=== PATIENT | female | born 1970 | race Caucasian/White ===

== ENCOUNTER → 2017-03-31 13:09 | Outpatient (CLI) | payer OTHER, SELFPAY ==
[2017-03-31 16:53] LABS: BUN 9 mg/dL (7-18); Creatinine, Serum 0.78 mg/dL (0.55-1.02); Glucose 84 mg/dL (74-106)
[2017-03-31 16:54] LABS: ALB/GLOB Ratio 0.9 RATIO (0.9-2.4); AST(SGOT) 15 U/L (15-37); Alanine Aminotransfer ALT/SGPT 24 U/L (13-56); Albumin, Serum 3.8 g/dL (3.2-5.0); Alkaline Phosphatase 72 U/L (45-117); Anion Gap 7 (5-15); BUN/Creat Ratio 11.5 RATIO (10-20); Calcium,Total 9.2 mg/dL (8.5-10.1); Chloride 105 mmol/L (98-107); EST Glomerular Filtration Rate 84 mL/min (>60); Est Glom Filt Rate - Afr Amer 101 mL/min (>60); Globulin 4.3 g/dL (2.2-4.2); Potassium 3.8 mmol/L (3.5-5.1); Protein, Total 8.1 g/dL (6.4-8.2); Sodium Level 138 mmol/L (136-145)
[2017-03-31 18:34] LABS: Absolute Lymphocyte Count 2.76 X10^3/ul (0.83-4.51); Absolute Neutrophil Count 4.5 X10^3/uL (2.0-7.7); Basophil# 0.04 X10^3/uL; Basophil% 0.5 % (0-1); Eosinophil# 0.13 X10^3/uL; Eosinophils% 1.6 % (0-5); Hematocrit 41.7 % (37-47); Hemoglobin 13.7 g/dl (12.0-15.0); Lymphocyte # 2.76 X10^3/ul (4.0); Lymphocyte % 33.7 % (19-41); Mean Corp Hgb Conc 32.9 g/gl (32-36); Mean Corpuscular Hgb 31.2 pg (27.0-32.0); Mean Platelet Vol. 9.9 fl (6.2-12.0); Monocyte# 0.76 X10^3/uL; Monocyte% 9.3 % (0-10); Neutrophil # 4.49 X10^3/uL (2.7-7.7); Neutrophil % 54.8 % (47-70); Platelet Count 444 K/mm3 (150-450); RBC Distribution Width CV 13.6 % (11.6-14.6); RBC Distribution Width SD 44.5 fl (35.1-43.9); Red Blood Count 4.39 M/mm3 (4.2-5.4); White Blood Count 8.2 K/mm3 (4.4-11.0)
[2017-03-31 18:54] LABS: POSITIVE COUNT NO; POSITIVE DIFFERENTIAL NO; POSITIVE MORPHOLOGY NO
== END ==
PROVIDERS: Family Provider Nurse Practitioner; PCP Nurse Practitioner; Visit Provider Internal Medicine Rheumatology
DX: L40.59 Other psoriatic arthropathy (principal); L40.8 Other psoriasis; M35.1 Other overlap syndromes; Z79.899 Other long term (current) drug therapy
CPT/HCPCS: 36415; 80053; 85025

== ENCOUNTER → 2017-06-19 10:05 | Outpatient (CLI) | payer OTHER, SELFPAY ==
[2017-06-19 12:07] LABS: White Blood Count 8.5 K/mm3 (4.4-11.0)
[2017-06-19 12:08] LABS: Absolute Lymphocyte Count 2.33 X10^3/ul (0.83-4.51); Absolute Neutrophil Count 5.2 X10^3/uL (2.0-7.7); Basophil# 0.04 X10^3/uL; Basophil% 0.5 % (0-1); Eosinophil# 0.09 X10^3/uL; Eosinophils% 1.1 % (0-5); Hematocrit 42.9 % (37-47); Hemoglobin 14.4 g/dl (12.0-15.0); Lymphocyte # 2.33 X10^3/ul (4.0); Lymphocyte % 27.5 % (19-41); Mean Corp Hgb Conc 33.6 g/gl (32-36); Mean Corpuscular Hgb 31.5 pg (27.0-32.0); Mean Corpuscular Volume 93.9 fL (81-99); Mean Platelet Vol. 9.6 fl (6.2-12.0); Monocyte# 0.84 X10^3/uL; Monocyte% 9.9 % (0-10); Neutrophil # 5.15 X10^3/uL (2.7-7.7); Neutrophil % 60.9 % (47-70); POSITIVE COUNT NO; POSITIVE DIFFERENTIAL NO; POSITIVE MORPHOLOGY NO; Platelet Count 457 K/mm3 (150-450); RBC Distribution Width CV 13.4 % (11.6-14.6); RBC Distribution Width SD 44.6 fl (35.1-43.9); Red Blood Count 4.57 M/mm3 (4.2-5.4)
[2017-06-19 12:31] LABS: ALB/GLOB Ratio 0.8 RATIO (0.9-2.4); AST(SGOT) 17 U/L (15-37); Alanine Aminotransfer ALT/SGPT 25 U/L (13-56); Albumin, Serum 3.7 g/dL (3.2-5.0); Alkaline Phosphatase 79 U/L (45-117); Anion Gap 9 (5-15); BUN 10 mg/dL (7-18); Calcium,Total 9.3 mg/dL (8.5-10.1); Chloride 105 mmol/L (98-107); Creatinine, Serum 0.83 mg/dL (0.55-1.02); EST Glomerular Filtration Rate 78 mL/min (>60); Est Glom Filt Rate - Afr Amer 94 mL/min (>60); Globulin 4.5 g/dL (2.2-4.2); Glucose 92 mg/dL (74-106); Protein, Total 8.2 g/dL (6.4-8.2); Sodium Level 137 mmol/L (136-145); Uric Acid 3.4 mg/dL (2.6-6.0)
== END ==
PROVIDERS: Family Provider Nurse Practitioner; PCP Nurse Practitioner; Visit Provider Internal Medicine Rheumatology
DX: L40.59 Other psoriatic arthropathy (principal); M79.7 Fibromyalgia; L40.8 Other psoriasis; M35.1 Other overlap syndromes; Z79.899 Other long term (current) drug therapy
CPT/HCPCS: 36415; 80053; 84550; 85025

== ENCOUNTER → 2017-06-23 11:48 | Outpatient (CLI) | payer OTHER, SELFPAY ==
--- NOTE | 2017-06-23 11:52 | RAD_ITS ---
STUDY: X-RAY - RIGHT KNEE REASON FOR EXAM: Psoriatic arthropathy. TECHNIQUE: 4 view(s) of the knee. COMPARISON: None. FINDINGS: Normal visualized distal femur. Normal visualized proximal tibia and fibula. Normal proximal tibiofibular articulation. There is mild joint space narrowing of the medial femorotibial compartment and a small subchondral cyst of the medial femoral condyle. Normal lateral femorotibial compartment. There are minimal marginal osteophytes of the patella without joint space narrowing of the patellofemoral articulation. The soft tissue structures are unremarkable. RAD/Knee 4 or More Views IMPRESSION: Mild degenerative arthrosis of the medial femorotibial compartment. Electronically Signed: Alan Escobedo MD at 12:24 EDT Tel , Service support ,
--- NOTE | 2017-06-23 11:52 | RAD_ITS ---
STUDY: X-RAY - LEFT KNEE REASON FOR EXAM: Psoriatic arthropathy. TECHNIQUE: 4 view(s) of the knee. COMPARISON: None. FINDINGS: Normal visualized distal femur. Normal visualized proximal tibia and fibula. Normal proximal tibiofibular articulation. There is mild joint space narrowing of the medial femorotibial compartment. Normal lateral femorotibial compartment. Normal patellofemoral articulation. The soft tissue structures are unremarkable. RAD/Knee 4 or More Views IMPRESSION: Mild degenerative arthrosis of the medial femorotibial compartment. Electronically Signed: Alan Escobedo MD at 12:24 EDT Tel , Service support ,
== END ==
PROVIDERS: Family Provider Nurse Practitioner; PCP Nurse Practitioner; Visit Provider Internal Medicine Rheumatology
DX: L40.59 Other psoriatic arthropathy (principal); M79.7 Fibromyalgia; L40.8 Other psoriasis; M35.1 Other overlap syndromes; Z79.899 Other long term (current) drug therapy
CPT/HCPCS: 73564

== ENCOUNTER → 2017-07-23 11:36 | Outpatient (CLI) | payer OTHER, SELFPAY ==
--- NOTE | 2017-07-23 11:36 | RAD_ITS ---
STUDY: X-RAY CHEST REASON FOR EXAM: Female, 47 years old. Long-term drug therapy. Psoriatic arthropathy. TECHNIQUE: PA and lateral views of the chest. COMPARISON: May 01, 2016. FINDINGS: The lungs are clear and expanded. There is no demonstrated pleural abnormality. Normal size heart. Normal mediastinum and ahsan. Normal visualized pulmonary arteries. Normal visualized aortic arch and descending thoracic aorta. Normal visualized thoracic spine. Normal visualized ribs, clavicles, and shoulders. There is no demonstrated abnormality of the visualized soft tissue structures of the upper abdomen. RAD/Chest PA and Lateral IMPRESSION: Normal x-ray examination of the chest. There is no interval change. Electronically Signed: Preston Cook DO at 15:40 EDT Tel [phone], Service support ,
--- NOTE | 2017-07-23 11:36 | DT_ITS ---
This patient was seen during an EMR downtime July 21, 2017 - July 28, 2017. This patient may have a combination of paper and electronic documentation or all paper documentation. All documentation is viewable within the e-chart portion of [facility] for each patient visit.
[2017-08-01 16:10] LABS: QNTFERON TB Ag Minus Nil Value < 0 IU/mL (.); QNTFERON TB Ag Value 0.06 IU/mL (.); QNTFERON TB Mitogen Value > 10.00 IU/mL (.); QNTFERON TB Nil Value 0.08 IU/mL (.)
[2017-08-01 18:28] LABS: QNTIFERON TB Gold Negative (Negative)
== END ==
PROVIDERS: Family Provider Nurse Practitioner; PCP Nurse Practitioner; Visit Provider Internal Medicine Rheumatology
DX: L40.59 Other psoriatic arthropathy (principal); Z79.899 Other long term (current) drug therapy; M79.7 Fibromyalgia; L40.8 Other psoriasis; M35.1 Other overlap syndromes
CPT/HCPCS: 71046; 86480

== ENCOUNTER → 2017-10-01 10:18 | Outpatient (CLI) | payer OTHER, SELFPAY ==
[2017-10-01 12:40] LABS: Absolute Lymphocyte Count 2.76 X10^3/ul (0.83-4.51); Absolute Neutrophil Count 4.1 X10^3/uL (2.0-7.7); Basophil# 0.04 X10^3/uL; Basophil% 0.5 % (0-1); Eosinophil# 0.18 X10^3/uL; Eosinophils% 2.3 % (0-5); Hematocrit 39.7 % (37-47); Hemoglobin 12.7 g/dl (12.0-15.0); Lymphocyte # 2.76 X10^3/ul (4.0); Lymphocyte % 35.4 % (19-41); Mean Corpuscular Hgb 30.1 pg (27.0-32.0); Mean Corpuscular Volume 94.1 fL (81-99); Mean Platelet Vol. 9.5 fl (6.2-12.0); Monocyte# 0.71 X10^3/uL; Monocyte% 9.1 % (0-10); Neutrophil % 52.6 % (47-70); Platelet Count 419 K/mm3 (150-450); RBC Distribution Width SD 44.3 fl (35.1-43.9); Red Blood Count 4.22 M/mm3 (4.2-5.4); White Blood Count 7.8 K/mm3 (4.4-11.0)
[2017-10-01 12:44] LABS: POSITIVE COUNT NO; POSITIVE DIFFERENTIAL NO; POSITIVE MORPHOLOGY NO
[2017-10-01 13:05] LABS: ALB/GLOB Ratio 0.8 RATIO (0.9-2.4); AST(SGOT) 14 U/L (15-37); Alanine Aminotransfer ALT/SGPT 21 U/L (13-56); Albumin, Serum 3.3 g/dL (3.2-5.0); Alkaline Phosphatase 75 U/L (45-117); Anion Gap 6 (5-15); BUN 10 mg/dL (7-18); BUN/Creat Ratio 13.1 RATIO (10-20); Calcium,Total 9.3 mg/dL (8.5-10.1); Chloride 108 mmol/L (98-107); Creatinine, Serum 0.76 mg/dL (0.55-1.02); EST Glomerular Filtration Rate 86 mL/min (>60); Est Glom Filt Rate - Afr Amer 105 mL/min (>60); Globulin 4.1 g/dL (2.2-4.2); Glucose 86 mg/dL (74-106); Potassium 3.7 mmol/L (3.5-5.1); Protein, Total 7.4 g/dL (6.4-8.2); Sodium Level 141 mmol/L (136-145)
== END ==
PROVIDERS: Family Provider Nurse Practitioner; PCP Nurse Practitioner; Visit Provider Internal Medicine Rheumatology
DX: L40.59 Other psoriatic arthropathy (principal); M79.7 Fibromyalgia; L40.8 Other psoriasis; M35.1 Other overlap syndromes; Z79.899 Other long term (current) drug therapy
CPT/HCPCS: 36415; 80053; 85025

== ENCOUNTER → 2017-11-08 07:25 | Outpatient (CLI) | payer OTHER, SELFPAY ==
--- NOTE | 2017-11-08 07:32 | BI_ITS ---
MAMMOGRAPHY - BILATERAL SCREENING REASON FOR EXAM: Female, 47 years old. Routine annual screening examination. PERTINENT HISTORY: Grandmother with breast cancer. TECHNIQUE: Digital bilateral breast addis (3D mammographic acquisition) in the CC and MLO projections. 2-D mediolateral oblique (MLO) and craniocaudad (CC) views of both breasts were obtained. CAD: Full Field Digital Mammography with Computer Added Detection was performed. COMPARISON: No comparison mammograms available at this time. If any prior films become available, an addendum to this report can be generated. FINDINGS: Breast Composition: There are scattered areas of fibroglandular density. There are no dominant masses or suspicious calcifications. There is a 6.2 mm by 7.4 mm well-defined nodule in the deep upper lateral portion of the right breast. Correlation with ultrasound is recommended. No other significant abnormalities are identified. BI/SCREENING MAMM (CAD), BILAT IMPRESSION: 6.2 mm x 7.4 mm well-defined nodule in the deep upper lateral portion of the right breast. Correlation with ultrasound is recommended. ASSESSMENT CATEGORY: BIRADS Category 0: Incomplete. Need additional imaging evaluation. A letter regarding these results will be sent to the patient by the facility within 30 days. Approximately 10% of breast cancers are not detected by mammography. A normal mammogram should not delay biopsy of a clinically suspicious abnormality. [id number] Electronically Signed: Moisés Lieberman MD at 14:51 EDT Tel [phone], Service support ,
== END ==
PROVIDERS: Family Provider Nurse Practitioner; PCP Nurse Practitioner; Visit Provider Nurse Practitioner
DX: Z12.31 Encounter for screening mammogram for malignant neoplasm of breast (principal)
CPT/HCPCS: 77063; 77067

== ENCOUNTER → 2017-11-12 09:37 | Outpatient (CLI) | payer OTHER, SELFPAY ==
--- NOTE | 2017-11-12 09:39 | US_ITS ---
STUDY: ULTRASOUND BREAST - RIGHT REASON FOR EXAM: Female, 47 years old. Abnormal screening mammogram. TECHNIQUE: Axial and longitudinal images of the RIGHT breast were performed with a high resolution ultrasound transducer. COMPARISON: Comparison is made with prior mammogram dated November 08, 2017. FINDINGS: RIGHT Breast: The mammographic abnormality corresponds to a 6 mm x 7 mm x 5 mm well-defined hypoechoic nodule with central echogenic hilum with flow. This is suggestive of a small lymph node. This is located at the 9:00 position in the breast at 8 cm from the nipple. US/Breast Limited Unilateral IMPRESSION: The mammographic abnormality corresponds to a 6 mm x 7 mm x 1 5 mm well-defined nodule as described. This is suggestive of a small lymph node. Routine annual mammographic follow-up is recommended. ASSESSMENT CATEGORY: BIRADS Category 2: Benign. A letter regarding these results will be sent to the patient by the facility within 30 days. Electronically Signed: Moisés Lieberman MD at 10:48 EDT Tel [phone], Service support ,
== END ==
PROVIDERS: Family Provider Nurse Practitioner; PCP Nurse Practitioner; Visit Provider Nurse Practitioner
DX: R92.8 Other abnormal and inconclusive findings on diagnostic imaging of breast (principal)
CPT/HCPCS: 76642

== ENCOUNTER → 2018-03-03 14:04 | Outpatient (CLI) | payer OTHER, SELFPAY ==
[2018-03-03 15:21] LABS: Absolute Lymphocyte Count 3.54 X10^3/ul (0.83-4.51); Absolute Neutrophil Count 5.6 X10^3/uL (2.0-7.7); Basophil# 0.05 X10^3/uL; Basophil% 0.5 % (0-1); Eosinophil# 0.31 X10^3/uL; Hematocrit 43.9 % (37-47); Hemoglobin 14.4 g/dl (12.0-15.0); Lymphocyte # 3.54 X10^3/ul (4.0); Lymphocyte % 34.1 % (19-41); Mean Corp Hgb Conc 32.8 g/gl (32-36); Mean Corpuscular Hgb 30.1 pg (27.0-32.0); Mean Corpuscular Volume 91.8 fL (81-99); Mean Platelet Vol. 9.6 fl (6.2-12.0); Monocyte# 0.81 X10^3/uL; Monocyte% 7.8 % (0-10); Neutrophil # 5.64 X10^3/uL (2.7-7.7); Neutrophil % 54.4 % (47-70); Platelet Count 404 K/mm3 (150-450); RBC Distribution Width CV 13.3 % (11.6-14.6); RBC Distribution Width SD 44.3 fl (35.1-43.9); Red Blood Count 4.78 M/mm3 (4.2-5.4); White Blood Count 10.4 K/mm3 (4.4-11.0)
[2018-03-03 15:31] LABS: POSITIVE COUNT NO; POSITIVE DIFFERENTIAL NO; POSITIVE MORPHOLOGY NO
[2018-03-03 15:33] LABS: AST(SGOT) 16 U/L (15-37); Alanine Aminotransfer ALT/SGPT 24 U/L (13-56); Alkaline Phosphatase 80 U/L (45-117); Bilirubin, Direct 0.08 mg/dL (0.00-0.30); Globulin 4.3 g/dL (2.2-4.2); Protein, Total 8.3 g/dL (6.4-8.2)
[2018-03-03 16:19] LABS: HIV - WCH Non-Reactive (Nonreactive)
[2018-03-06 03:07] LABS: HEPATITIS B SURFACE AG Negative (Negative); QNTFERON TB Mitogen Value > 10.00 IU/mL (.); QNTFERON TB Nil Value 0.04 IU/mL (.); QNTFERON TB1+ Ag Value 0.11 IU/mL (.); QNTFERON TB2+ Ag Value 0.07 IU/mL (.)
[2018-03-06 11:16] LABS: Hep B Surface Antibodies Reactive (.); Hep C Antibodies 0.1 s/co ratio (0.0-0.9); Hepatitis B Core AB IgM Negative (Negative); QNTIFERON TB Positive Criteria Negative (Negative)
== END ==
PROVIDERS: Family Provider Nurse Practitioner; PCP Nurse Practitioner; Referring Provider Dermatology; Visit Provider Dermatology
DX: Z79.899 Other long term (current) drug therapy (principal)
CPT/HCPCS: 36415; 80076; 85025; 86480; 86703; 86705; 86706; 86803; 87340

== ENCOUNTER → 2018-03-12 07:44 | Outpatient (CLI) | payer OTHER, SELFPAY ==
[2018-03-12 10:16] LABS: Absolute Lymphocyte Count 3.24 X10^3/ul (0.83-4.51); Absolute Neutrophil Count 5.8 X10^3/uL (2.0-7.7); Basophil# 0.04 X10^3/uL; Basophil% 0.4 % (0-1); Hematocrit 43.1 % (37-47); Lymphocyte # 3.24 X10^3/ul (4.0); Lymphocyte % 31.8 % (19-41); Mean Corp Hgb Conc 32.5 g/gl (32-36); Mean Corpuscular Volume 92.5 fL (81-99); Mean Platelet Vol. 9.3 fl (6.2-12.0); Monocyte# 0.84 X10^3/uL; Monocyte% 8.3 % (0-10); Neutrophil # 5.84 X10^3/uL (2.7-7.7); Neutrophil % 57.3 % (47-70); Platelet Count 384 K/mm3 (150-450); RBC Distribution Width CV 13.2 % (11.6-14.6); RBC Distribution Width SD 44.2 fl (35.1-43.9); Red Blood Count 4.66 M/mm3 (4.2-5.4); White Blood Count 10.2 K/mm3 (4.4-11.0)
[2018-03-12 10:18] LABS: POSITIVE COUNT NO; POSITIVE DIFFERENTIAL NO; POSITIVE MORPHOLOGY NO
[2018-03-12 11:14] LABS: ALB/GLOB Ratio 0.9 RATIO (0.9-2.4); AST(SGOT) 12 U/L (15-37); Alanine Aminotransfer ALT/SGPT 22 U/L (13-56); Albumin, Serum 3.7 g/dL (3.2-5.0); Alkaline Phosphatase 80 U/L (45-117); Anion Gap 10 (5-15); BUN 12 mg/dL (7-18); BUN/Creat Ratio 14.9 RATIO (10-20); Calcium,Total 9.3 mg/dL (8.5-10.1); Chloride 106 mmol/L (98-107); Creatinine, Serum 0.81 mg/dL (0.55-1.02); EST Glomerular Filtration Rate 80 mL/min (>60); Est Glom Filt Rate - Afr Amer 97 mL/min (>60); Globulin 4.3 g/dL (2.2-4.2); Glucose 87 mg/dL (74-106); Sodium Level 139 mmol/L (136-145)
== END ==
PROVIDERS: Family Provider Nurse Practitioner; PCP Nurse Practitioner; Referring Provider Internal Medicine Rheumatology; Visit Provider Internal Medicine Rheumatology
DX: L40.59 Other psoriatic arthropathy (principal); M79.7 Fibromyalgia; L40.8 Other psoriasis; M35.1 Other overlap syndromes; Z79.899 Other long term (current) drug therapy
CPT/HCPCS: 36415; 80053; 85025

== ENCOUNTER → 2018-06-11 | Outpatient (CLI) | payer OTHER, SELFPAY ==
--- NOTE | 2018-06-11 11:24 | CT_ITS ---
STUDY: CT ABDOMEN AND PELVIS WITHOUT CONTRAST REASON FOR EXAM: Female, 48 years old. Left-sided flank pain RADIATION DOSAGE (If Supplied By Facility): CTDIvol = ( 14.80 ) mGy, DLP = ( 785.25 ) mGycm TECHNIQUE: Transaxial images were obtained from the dome of the diaphragm to the symphysis pubis without oral contrast, and without intravenous contrast. Sagittal and coronal images were reconstructed. Individualized dose optimization techniques were used for this CT. COMPARISON: None. FINDINGS: The visualized lung bases are unremarkable. The visualized portions of the heart are within normal limits. Normal liver. There are surgical clips in the gallbladder fossa consistent with a prior cholecystectomy. Normal spleen. Normal pancreas. Normal bilateral adrenal glands. Normal right kidney. Normal left kidney. Normal visualized stomach. Normal small intestine. There are multiple colonic diverticula consistent with diverticulosis. There are surgical clips in the region of the appendix consistent with a prior appendectomy. Normal abdominal aorta. Normal inferior vena cava. Normal retroperitoneum. Normal urinary bladder. Uterus is still present and contains a popcorn like calcification suggesting involuted fibroid. There is a fat containing right pelvic mass on axial image 146 likely a ovarian dermoid. It measures 5.1 cm. No cystic mass or free fluid identified. Normal abdominal wall. Normal osseous structures. CT/Abdomen/Pelvis without Cont IMPRESSION: No obstructive uropathy or CT evidence to suspect cystitis. 5.1 cm right ovarian dermoid Calcification within the right uterus likely represents a involuted fibroid No suspicious solid organ abnormality, previous cholecystectomy Electronically Signed: Gideon Lemon MD at 12:12 EDT , Service support ,
== END | disposition home or self-care (01) ==
PROVIDERS: Family Provider Nurse Practitioner; PCP Nurse Practitioner; Referring Provider Internal Medicine; Visit Provider Internal Medicine
DX: R10.9 Unspecified abdominal pain (principal)
CPT/HCPCS: 74176

== ENCOUNTER → 2018-06-26 12:08 | Outpatient (CLI) | payer OTHER, SELFPAY ==
[2018-06-26 12:30] LABS: Absolute Lymphocyte Count 3.16 X10^3/ul (0.83-4.51); Basophil# 0.06 X10^3/uL; Basophil% 0.5 % (0-1); Eosinophil# 0.18 X10^3/uL; Eosinophils% 1.6 % (0-5); Hematocrit 43.2 % (37-47); Hemoglobin 14.7 g/dl (12.0-15.0); Lymphocyte # 3.16 X10^3/ul (4.0); Mean Corpuscular Hgb 31.1 pg (27.0-32.0); Mean Corpuscular Volume 91.3 fL (81-99); Mean Platelet Vol. 9.1 fl (6.2-12.0); Monocyte# 0.87 X10^3/uL; Monocyte% 7.7 % (0-10); Neutrophil # 6.98 X10^3/uL (2.7-7.7); POSITIVE COUNT NO; POSITIVE DIFFERENTIAL NO; POSITIVE MORPHOLOGY NO; Platelet Count 388 K/mm3 (150-450); RBC Distribution Width SD 46.3 fl (35.1-43.9); Red Blood Count 4.73 M/mm3 (4.2-5.4); White Blood Count 11.3 K/mm3 (4.4-11.0)
--- NOTE | 2018-06-26 12:35 | RAD_ITS ---
STUDY: X-RAY CHEST REASON FOR EXAM: Female, 48 years old. Preoperative assessment TECHNIQUE: PA and lateral COMPARISON: 07/23/2017 FINDINGS: The lungs are clear and expanded. There is no demonstrated pleural abnormality. Normal size heart. Normal mediastinum and ahsan. Normal visualized pulmonary arteries. Normal visualized aortic arch and descending thoracic aorta. Normal visualized thoracic spine. Normal visualized ribs, clavicles, and shoulders. There is no demonstrated abnormality of the visualized soft tissue structures of the upper abdomen. RAD/Chest PA and Lateral IMPRESSION: Normal x-ray examination of the chest. Electronically Signed: Kirby Horowitz MD at 4:28 EDT , Service support ,
== END ==
PROVIDERS: Family Provider Nurse Practitioner; PCP Nurse Practitioner; Referring Provider Nurse Practitioner; Visit Provider Nurse Practitioner
DX: D72.829 Elevated white blood cell count, unspecified (principal); D69.1 Qualitative platelet defects
CPT/HCPCS: 36415; 71046; 85025

== ENCOUNTER 2018-07-14 11:52 | Day surgery (SDC) | payer OTHER, SELFPAY ==
--- NOTE | 2018-06-29 20:06 | PCM.HP.STD ---
History of Present Illness Date of Admission: 07/14/18 Chief Complaint: Adnexal mass with dermoid appearance The patient is a 48 year old F with pelvic pain and radiology notation of adnexal mass suspected to be a dermoid. Surgical removal is recommended. Past Medical History Medical History: Medical History (Last Updated 06/29/18 @ 20:16 by Halley Serrano MD) Hyperlipidemia E78.5 Psoriasis (a type of skin inflammation) L40.9 Psoriatic arthritis L40.50 Allergies PINE Allergy (Uncoded 08/25/15 18:46) Rash Home Medications: Ambulatory Orders Medication Instructions Recorded DiphenhydrAMINE [Benadryl] 50 mg PO TID PRN PRN 08/25/15 Prednisone 10 mg PO UD #33 tablet 08/25/15 Surgical History: - - Tubal ligation Lives: Spouse/ Significant Other Smoking Status: Light Smoker (<10/day) Tobacco Use: Cigarettes - 3 cigarettes per day Alcohol: Rare Drugs: None Review of Systems Constitutional: Denies: Chills, Fever, Weight Change HEENT: Denies: Difficulty Hearing, Difficulty Swallowing, Nasal bleeding, Nasal Congestion, Sore Throat Cardiovascular: Denies: Chest Pain, Palpitations Respiratory: Denies: Shortness of Breath, Wheezing Gastrointestinal: Denies: Constipation, Diarrhea, Nausea, Vomiting Genitourinary: Denies: Dysuria, Frequency, Hematuria, Incontinence, Urgency Musculoskeletal: Denies: Joint Pain, Muscle pain Skin: Denies: Lesions, Skin Changes Neurological: Denies: Focal weakness, Numbness Psychiatric: Denies: Anxiety, Depression Endocrine: Denies: Heat/ Cold Intolerance Hematologic/ Lymphatic: Denies: Easy Bleeding VTE Information - Inpt Only VTE Present on Admission: No VTE Mechan Device Prophylaxis: None VTE Pharm Prophylaxis ordered?: No Reason prophylaxis not ordered:: Procedure Not Indicated - Physical Exam General: No apparent distress, Well developed, Well nourished HEENT: PERRLA, EOMI, Normocephalic Neck: No Nodes, No Nuchal Rigidity, Thyroid Normal Size and Texture Lungs: Clear to auscultation - bilaterally Cardiovascular: Regular rate, No murmurs, No rub noted Abdomen: Soft, Non Tender, Non-Distended, - - No guarding, hepatomegaly, splenomegaly, rebound tenderness Extremities: No clubbing, No cyanosis, No edema, No Calf Tenderness Skin: No rashes, Other - No ulcers, lesions Musculoskeletal: No Tenderness to Palpation of Joints or Extremities, No Muscle Wasting Lymphatic: No Cervical, Supraclavicular, or Inguinal Adenopathy Neurological: Cranial nerves II-XII grossly intact Psych/Mental Status: Alert and oriented to time, place, person, mood and affect Assessment/Plan 1. Right adnexal mass, suspected dermoid Surgical removal is recommended The preop preparation, the intraop procedures and the postop recovery reviewed. The risks of bleeding, infection and other organ damage including bladder, bowel and ureteral damage reviewed, accepted and consented. 2. Elevated HgA1C pcp evaluation and medical clearance 3. Elevated WBC and platelets pcp evaluation and medical clearance
[2018-07-09 12:51] LABS: Hematocrit 39.9 % (37-47); Hemoglobin 13.1 g/dl (12.0-15.0); Mean Corp Hgb Conc 32.8 g/gl (32-36); Mean Corpuscular Volume 91.5 fL (81-99); Mean Platelet Vol. 9.7 fl (6.2-12.0); Platelet Count 352 K/mm3 (150-450); RBC Distribution Width CV 13.8 % (11.6-14.6); RBC Distribution Width SD 45.2 fl (35.1-43.9); Red Blood Count 4.36 M/mm3 (4.2-5.4); White Blood Count 11.1 K/mm3 (4.4-11.0)
[2018-07-09 13:03] LABS: Scan Indicated on CBC? Y/N NO
[2018-07-14 12:14] VITALS: BP 111/54; PULSE 71; RESP 16; TEMP 36.3; O2SAT 96; BMI 37.5
[2018-07-14 12:19] LABS: Internal QC Validated? YES +Cl - CLEAR BKGD
[2018-07-14 12:20] LABS: Pregnancy, Urine Negative Negative
[2018-07-14 12:54] LABS: Anion Gap 6 (5-15); BUN 7 mg/dL (7-18); BUN/Creat Ratio 8.4 RATIO (10-20); Calcium,Total 9.4 mg/dL (8.5-10.1); Chloride 104 mmol/L (98-107); Creatinine, Serum 0.84 mg/dL (0.55-1.02); EST Glomerular Filtration Rate 77 mL/min (>60); Est Glom Filt Rate - Afr Amer 93 mL/min (>60); Estimated Creatinine Clearance 67.75 ml/min; Glucose 97 mg/dL (74-106); Potassium 4.1 mmol/L (3.5-5.1); Sodium Level 136 mmol/L (136-145)
--- NOTE | 2018-07-14 13:25 | OV_PTH ---
PATIENT: CINDI JARA LOC: [facility] [place] U#:[id number] AGE/SX: 48/F ROOM: RE07/14/[address]: Dr. Halley Serrano MD : 1970 BED: DIS: 07/14/2018 SPEC #: [id number] RECD: 07/15/18 09:00 STATUS: KARENA ELSI #: [id number] MITRA: 07/14/18 13:[address]: Halley Serrano DEPT: SURGICAL PATHOLOGY RECD BY: Pedrito King ENTERED: 07/15/18 09:00 SP TYPE: OVARY OTHR DR: MD Aziza Coe, INDUSTRIAL ECOLOGY TECHNICIAN-C Tissues: Right ovary Procedures: Surgery Specimen Level IV HEADER OPERATION: Laparoscopic oophorectomy PRE-OP DIAGNOSIS: Right adnexal mass, suspected dermoid TISSUE SUBMITTED: Right ovary MICROSCOPIC DIAGNOSIS Right ovary with adnexal mass, laparoscopic oophorectomy: Mature cystic teratoma. CE:rg 5/30/19 MICROSCOPIC DESCRIPTION Slides are reviewed. GROSS DESCRIPTION Received in fixative is one container labeled with the patient's name and designated right ovary. The specimen consists of a distended ovary measuring 7 x 5 x 4.2 cm. The serosal surface is schuler-yellow to reddish-pink. An area of rupture is noted measuring 1.5 cm in diameter. The ovary is serially cross-sectioned to reveal lobulated fatty tissue, hair, tooth/bone and schuler, cheesy material. Grossly, nearly the entire specimen is involved by the lesion. Weight Control Lecturer sections are submitted in five cassettes. / CE:wilman 07/15/18 TC:1 CPT: 11644
--- NOTE | 2018-07-14 14:54 | PCM.OPRPT ---
Problem List (1) Right ovarian cyst Status: Acute Report of Operation Date of Procedure: 07/14/18 Pre-Operative Diagnosis: Right ovarian cyst Post-Operative Diagnosis: Same plus pelvic adhesive disease Surgery/Procedure Performed:: Operative laparoscopy, enterolysis, right salpingo-oophorectomy. Description of Surgical Findings:: The uterus was sounded to approximately 9-1/2 to 10 cm in an anterior position. Bilateral adnexa on pelvic examination was somewhat limited due to patient's body habitus. Upon entering the abdominal cavity it was noted that there was a large amount of pelvic adhesive disease surrounding the entire genitalia with the prominent right ovary with dermoid cyst superior to the uterus. Pelvic adhesive disease to the pelvic sidewall and bowel was noted. branch administrator: Sukhjinder Zapata Type of Anesthesia:: General Anesthesiologist: Jourdan Samson Special Medications: Cefotetan 3 g IV preoperatively along with Emily placed to the pelvis. Specimen's removed: Right fallopian tube and right ovary Drains: None Estimated Blood Loss (mL): Minimal Fluids Replaced: Lactated Ringer Description of Procedure: Patient was brought to the operating room and n.p.o. status and she had undergone a bowel prep in the home setting. She was placed on the operating room table and had monitoring placed. She then underwent a general anesthetic once found to be adequate she was placed in dorsal lithotomy position via the Geovanny stirrups. She was prepped and draped in the normal sterile fashion. Timeout had occurred prior to the patient undergoing anesthesia or monitor placement. Second timeout occurred after which the patient was draped in the normal sterile fashion bladder bladder was emptied with a straight catheter. The weighted speculum was placed to the vagina the anterior lip of the cervix was grasped elevated with the uterus sounded to 9 1/2 cm in the anterior position. Uterine manipulator was then placed to the cervix. The weighted speculum was thus removed. Changing gloves and turned to the top of the patient a 1 cm incision was made at the umbilicus the Veress needle was placed into this abdominal incision with water testing verifying abdominal placement after 2 L of 2 gas was placed into the abdominal cavity the Veress needle was removed and replaced by a disposable 1112 trocar with the end of the Visiport used to place the laparoscope into the abdominal cavity. Once abdominal placement investigation of the pelvis occurred. Trendelenburg was incised by the anesthesia team and investigation of the right ovary and cyst occurred. 2 additional 5 mm disposable trochars were placed in the midline of the suprapubic region as well as the right lower quadrant both under direct visualization. The ligature was then used to aid with enteral lysis as well as disconnecting the infundibulopelvic ligament along with the uterine ovarian ligament to free the right fallopian tube and right ovary. The ureter was well below the area of operation. After full disconnection and dissection of the right ovary and fallopian tube from the uterus this was placed into the pelvic region and the camera was switched from the umbilical port to the right mid quadrant port and the Endo Catch bag was placed through that 1112 umbilical disposable trocar. The mass was then placed into the Endo Catch bag and I was secured this was brought to the fascial layer of the abdominal umbilical incision. This incision was then extended with scissors and the bag was decompressed of some of the material to make a smaller circumference to eventually remove through the umbilical incision. This was then away for pathological evaluation. Returning the disposable trocar to the abdominal umbilical incision re-infusion of CO2 gas into the abdominal cavity occurred. The lap scope was placed into the abdominal cavity profuse irrigation of the entire pelvis occurred with investigation of the prior operative site being noted to be hemostatic and well away from the area of the ureter. Emily was then placed to this operative site to aid with prevention of adhesive disease. At this point in time the trochars of the 5 mm x 2 removed under direct visualization patient was flattened and a CO2 gas was removed from the abdominal cavity with eventual removal of the umbilical trocar site. The sponge and needle counts were correct. Swing time the fascial layer was closed by myself using 0 Vicryl suture of the umbilical site. This was closed in a running interlocking stitch and hemostasis was noted. The subarticular layer was then approximated with 3-0 Vicryl suture. These were [id number] stitches. The skin was then closed with 4-0 Monocryl in a subcu jugular fashion. The 2 5 mm that were closed with 4-0 Monocryl in subcuticular fashion. Sponge instrument and needle counts were correct x2 all instrument removed from the vaginal vault as well as a urinary catheter with 50 cc of clear urine being noted. Grafts/Implants Used: None - Complications None - Admit VTE Documentation VTE Present on Admission: No VTE Mechan Device Prophylaxis: SCD's VTE Pharm Prophylaxis ordered?: No Reason prophylaxis not ordered:: Procedure Not Indicated
--- NOTE | 2018-07-14 15:05 | DCINST_ITS ---
Discharge Diet: No Restrictions - increase fluid intake for 48 hours. Minimum of 120 ounces per day x 48 hours Discharge Activity: Return to Normal Activity - Ambulate often with periods of rest in between for 72 hours, May Drive - when you are no longer taking pain/narcotic medicines., May Shower, May Take a Tub Bath - in 7 days. May shower in (days): 0 - Today May resume sexual activity in: 2 weeks Weight Bearing Status: Full weight bearing Lifting Restrictions: 5 pounds x 72 hours Additional Activity Instructions:: Ambulate often the next week after surgery. Nothing in the vagina for 5 days. Call your doctor if your incision/area has: Continuous Slow Oozing, Sudden Increased Bleeding, Increased Pain/ Swelling, Increased Redness, Foul Smelling Discharge Call your doctor if you observe: Fever of 101 or Higher, Inability to urinate, Inability to have a bowel movement, Using more than one pad per hour Remove Dressing in (days):: 1 - Dressings with soapy water in 24 hours Cleanse incision/area with: Soap & Water Allergies/Adverse Reactions: Allergies PINE Allergy (Uncoded 07/07/18 13:13) Rash Medications to take at Discharge DiphenhydrAMINE [Benadryl] 50 mg PO TID PRN PRN 08/25/15 Folic Acid 2 mg PO DAILY 07/07/18 Methotrexate 12.5 mg PO Q7D 07/07/18 Prednisone 10 mg PO PRN PRN 07/07/18 Rosuvastatin Calcium [Crestor] 5 mg PO QHS 07/07/18 Secukinumab [Cosentyx Pen] 300 mg SQ QMONTH 07/07/18 Primary Care Physician: Aziza Castro, SOFIA-C [Primary Care Provider] - Test Results: Test results from this visit will be discussed in further detail at your follow- up appointment, if applicable. Please Follow Up With: Dr. Serrano When: 1 to 2 weeks postop
[2018-07-14 15:10] VITALS: BP 111/54; BP 127/66; PULSE 85; RESP 16; TEMP 36.4; O2SAT 100
[2018-07-14 15:15] VITALS: BP 111/54; BP 121/63; PULSE 70; RESP 18; O2SAT 99
[2018-07-14 15:30] VITALS: BP 111/54; BP 129/83; PULSE 80; RESP 18; O2SAT 91
[2018-07-14 15:42] VITALS: BP 111/54; BP 150/97; PULSE 78; RESP 18; TEMP 36.2; O2SAT 99
[2018-07-14 16:52] VITALS: BP 111/54; BP 112/67; PULSE 72; RESP 16; TEMP 37.4; O2SAT 94
== END 2018-07-14 17:02 | disposition home or self-care (01) ==
LOC: SDC 11:52 → AC 11:53
PROVIDERS: Family Provider Nurse Practitioner; PCP Nurse Practitioner; Referring Provider Obstetrics & Gynecology; Visit Provider Obstetrics & Gynecology
PROC: (CPT 58720; principal; 2018-07-14 13:10)
DX: D27.0 Benign neoplasm of right ovary (principal); N73.6 Female pelvic peritoneal adhesions (postinfective); D72.829 Elevated white blood cell count, unspecified; F17.210 Nicotine dependence, cigarettes, uncomplicated; K21.9 Gastro-esophageal reflux disease without esophagitis; E78.00 Pure hypercholesterolemia, unspecified; L40.50 Arthropathic psoriasis, unspecified; Z87.442 Personal history of urinary calculi; Z79.52 Long term (current) use of systemic steroids; Z79.899 Other long term (current) drug therapy
CPT/HCPCS: 00840; 58661; 36415; 80048; 81025; 85027; 85610; 85730; 86850; 86900; 88305; J7120; J2405

== ENCOUNTER → 2019-12-22 10:06 | Outpatient (CLI) | payer OTHER, SELFPAY ==
[2019-12-20 14:37] VITALS: BMI 38.2
[2019-12-22 11:13] LABS: Estradiol 19.2 pg/mL
== END ==
PROVIDERS: PCP Nurse Practitioner; Referring Provider Obstetrics & Gynecology; Visit Provider Obstetrics & Gynecology
DX: N95.1 Menopausal and female climacteric states (principal); R10.2 Pelvic and perineal pain
CPT/HCPCS: 36415; 82670; 83001

== ENCOUNTER → 2020-01-14 13:11 | Outpatient (CLI) | payer OTHER, SELFPAY ==
[2019-12-20 14:37] VITALS: BMI 38.2
--- NOTE | 2020-01-14 13:20 | US_ITS ---
STUDY: ULTRASOUND OF THE FEMALE PELVIS - COMPLETE REASON FOR EXAM: Female, 49 years old. pain, menopausal , hx unilateral oophorectomy LMP: 12/14/2019 TECHNIQUE: Endovaginal TECHNICAL QUALITY: Adequate. COMPARISON: None. FINDINGS: The uterus is anteverted and is in a midline position. The uterus measures 9.9 x 7.1 x 4.4 cm. Nabothian cysts at the uterine cervix. The endometrium measures 3.3 mm in thickness, and is hyperechoic. There is no demonstrated endometrial mass. There is no demonstrated myometrial mass. The patient does not have an I.U.D. The ovaries are not visualized. There is no fluid in the cul-de-sac. The pre void volume of the bladder was 158 ml. US/Pelvic (Non ) IMPRESSION: Nabothian cysts. Nonvisualization of the ovaries. Electronically Signed: Farhad Paul DO at 19:33 EST Tel [phone], Service support ,
--- NOTE | 2020-01-14 13:20 | US_ITS ---
STUDY: ULTRASOUND OF THE FEMALE PELVIS - COMPLETE REASON FOR EXAM: Female, 49 years old. pain, menopausal , hx unilateral oophorectomy LMP: 12/14/2019 TECHNIQUE: Endovaginal TECHNICAL QUALITY: Adequate. COMPARISON: None. FINDINGS: The uterus is anteverted and is in a midline position. The uterus measures 9.9 x 7.1 x 4.4 cm. Nabothian cysts at the uterine cervix. The endometrium measures 3.3 mm in thickness, and is hyperechoic. There is no demonstrated endometrial mass. There is no demonstrated myometrial mass. The patient does not have an I.U.D. The ovaries are not visualized. There is no fluid in the cul-de-sac. The pre void volume of the bladder was 158 ml. US/Transvaginal Non- IMPRESSION: Nabothian cysts. Nonvisualization of the ovaries. Electronically Signed: Farhad Paul DO at 19:33 EST Tel [phone], Service support ,
--- NOTE | 2020-01-14 13:20 | BI_ITS ---
MAMMOGRAPHY - BILATERAL SCREENING REASON FOR EXAM: Female, 49 years old. Routine annual screening examination. PERTINENT HISTORY: Maternal grandmother had breast cancer TECHNIQUE: Digital bilateral breast gregorio (3D mammographic acquisition) in the CC and MLO projections. 2-D mediolateral oblique (MLO) and craniocaudad (CC) views of both breasts were obtained. CAD: Full Field Digital Mammography with Computer Added Detection was performed. COMPARISON: Previous mammogram obtained on 11/08/2017 FINDINGS: Breast Composition: Fatty There are no dominant masses or suspicious calcifications. No other significant abnormalities are identified. An intramammary lymph node is noted in the superior lateral aspect of the right breast which was noted previously and is unchanged to slightly smaller in size. BI/SCREEN MAMM (CAD) W/GREGORIO BILAT IMPRESSION: Stable bilateral screening mammogram. Yearly follow-up mammogram recommended. (A) ASSESSMENT CATEGORY: BIRADS Category 1: Negative. A letter regarding these results will be sent to the patient by the facility within 30 days. Approximately 10% of breast cancers are not detected by mammography. A normal mammogram should not delay biopsy of a clinically suspicious abnormality. [id number] Electronically Signed: Honorio Cuellar, at 16:52 EST Tel , Service support ,
== END ==
PROVIDERS: PCP Nurse Practitioner; Referring Provider Obstetrics & Gynecology; Visit Provider Obstetrics & Gynecology
DX: N95.1 Menopausal and female climacteric states (principal); R10.2 Pelvic and perineal pain; Z12.31 Encounter for screening mammogram for malignant neoplasm of breast
CPT/HCPCS: 76830; 76856; 77063; 77067

== ENCOUNTER 2021-08-19 20:03 | Emergency (ER) | payer BC, SELFPAY ==
[2021-08-19 20:04] VITALS: BP 155/104; PULSE 111; RESP 12; TEMP 37.4; O2SAT 100; BMI 37.2
--- NOTE | 2021-08-19 20:35 | EDS_ITS ---
HPI History of Present Illness Chief Complaint: Abd Pain Informant: patient Onset/Context/Timing Onset: Today Context: Gradual Onset Current Severity: Moderate Maximum Severity: Moderate Narrative Narrative: Patient present secondary lower abdominal pain. She states she had some mild tenderness just to the left of her umbilicus this morning that radiates down toward her vagina. She was playing in an outdoor pool with her grandson who accidentally hit her with a plastic baseball bat. She states she has increased pain to the area. She does have some mild dysuria. Normal bowel movements. No fever or chills. PFSH PFSH Medical History Diverticula of intestine Fibromyalgia Hyperlipidemia Psoriasis (a type of skin inflammation) Psoriatic arthritis Allergy/AdvReac Type Severity Reaction Status Date / Time PINE Allergy Rash Uncoded 08/19/21 20:04 Family History Father Lung cancer Surgical History H/O tubal ligation H/O unilateral oophorectomy History of cholecystectomy Social History Smoking Status: Heavy Smoker (>10/day) alcohol intake: never substance use type: does not use caffeine: Yes what type of physical activity do you participate in: walking seatbelt use: always do you feel safe at home: Yes 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 ROS ROS ED Constitutional Constitutional ED: Denies chills or fever(s) Eyes Eyes: Denies change in vision or discharge from eye(s) ENT ENT ED: Denies discharge from eye(s), rhinorrhea or sore throat Cardiovascular Cardiovascular: Denies chest pain or palpitations Respiratory/Chest Respiratory/Chest: Denies cough or dyspnea Gastrointestinal Gastrointestinal: Reports abdominal pain and nausea; Denies diarrhea or vomiting Genitourinary Genitourinary ED: Reports dysuria Musculoskeletal Musculoskeletal: Denies back pain or extremity pain Integumentary Denies Abrasions or rash Neurologic Neurologic: Denies headache(s) or weakness Allergic/Immunologic Allergic/Immunologic ED: Denies lip swelling or urticaria EXAM Physical Exam Const Vital Signs: 08/19/21 20:04 08/19/21 22:11 Temperature 99.3 F H Temperature Source Temporal Pulse Rate 111 H Respiratory Rate 12 18 Blood Pressure 155/104 H Blood Pressure Mean 121 Pulse Ox 100 97 Oxygen Delivery Method Room Air Room Air Positive well nourished and well developed General Appearance ED: well developed HEENT Reports normocephalic and head/scalp atraumatic Eyes PERRL and EOMs intact bilaterally Neck supple Chest Wall inspection of chest normal and palpation of chest normal Resp normal respiratory effort and clear to auscultation bilaterally Cardio regular rate and regular rhythm GI GI Narrative: Abdomen soft with tenderness in the left lower quadrant as well as the right mid abdomen. No overlying skin change. No guarding or rebound. Palpation: soft Extremity normal to inspection Neuro oriented x3 and no sensory deficits noted Sensorium / Orientation: alert Motor Exam: strength 5/5 throughout Psych mental status grossly normal Skin no rashes or lesions noted MDM MDM MDM Narrative Medical decision making narrative: Oral temperature at the time of my exam is 98.5. Lab work obtained along with urinalysis. CT scan of the abdomen pelvis ordered. Patient given morphine and Zofran for pain and nausea. Lab Data Attestation: I reviewed the patient's lab results. Labs: Laboratory Results - last 24 hr 08/19/21 08/19/21 08/19/21 20:25 20:25 20:25 WBC 12.6 H RBC 4.72 Hgb 14.1 Hct 43.7 MCV 92.6 MCH 29.9 MCHC 32.3 RDW Std Deviation 44.1 H RDW Coeff of Florian 13.0 Plt Count 453 H MPV 9.3 Immature Gran % (Auto) 0.300 Neut % (Auto) 50.0 Lymph % (Auto) 38.1 Ferry % (Auto) 9.0 Eos % (Auto) 2.0 Baso % (Auto) 0.6 Absolute Neuts (auto) 6.3 Absolute Lymphs (auto) 4.81 H Nucleated RBC % 0 Sodium 140 Potassium 3.8 Chloride 106 Carbon Dioxide 29.0 Anion Gap 5 BUN 13 Creatinine 0.93 Estim Creat Clear Calc 59.20 Est GFR (MDRD) Af Amer 81 Est GFR (MDRD) Non-Af 67 BUN/Creatinine Ratio 13.9 Glucose 97 Calcium 9.8 Total Bilirubin 0.20 Direct Bilirubin 0.07 AST 18 ALT 23 Alkaline Phosphatase 89 Total Protein 8.1 Albumin 3.8 Globulin 4.3 H Urine Color Yellow Urine Clarity Clear Urine pH 7.0 Ur Specific Reliance 1.010 Urine Protein Negative Urine Glucose (UA) Normal Urine Ketones Negative Urine Occult Blood Negative Urine Nitrite Negative Urine Bilirubin Negative Urine Urobilinogen Normal Ur Leukocyte Esterase Negative Urine RBC 0 SEEN Urine WBC 0 SEEN Ur Squamous Epith Cells 0-5 SEEN Urine Bacteria 0 SEEN Urine Mucus 0 SEEN Radiography Diagnostic Testing: Clinical Impression(s) from Imaging Studies Abdomen/Pelvis CT 08/19/21 22:28 IMPRESSION: Small fat-containing supraumbilical hernia with findings that can be seen with incarceration. No bowel obstruction. Colonic diverticulosis without evidence of acute diverticulitis. Hepatic steatosis. Electronically Signed: Myah Sanders MD at 22:57 EDT , Treatment and Re-Evaluation Narrative: White count slightly elevated at 12.6. No left shift noted. Chemistry studies and LFTs normal. Urinalysis reveals no infection. CT scan reveals a small fat- containing supraumbilical hernia. There is no evidence of bowel obstruction. There is no bowel involvement in the hernia. She does have diverticulosis without evidence of diverticulitis. On repeat exam patient is laid flat in the bed. I am not able to palpate the hernia. I do not feel any obvious masses at this time. With no involvement of the bowel I feel that this is stable. Patient will use Tylenol or ibuprofen as needed for pain. Return instructions provided. Discharge Plan Triage Chief Complaint: Abd Pain ED Provider: Linda Meléndez Dx/Rx/DC Orders Clinical Impression: Hernia, umbilical Instructions: ED Hernia (Adult) Primary Care Provider: Aziza Castro NP Referrals: Aziza Castro DIRECT[facility] OF THE [facility], [facility] OF THE [facility] [Primary Care Provider] - As Needed Disposition Disposition: Home, Self Care
[2021-08-19 20:51] LABS: Bacteria 0 SEEN /hpf (None Seen); Mucous, Urine 0 SEEN /hpf (<or=2+); Red Blood Cells-Urine 0 SEEN /hpf (0-5); White Blood Cells 0 SEEN /hpf (0-5)
[2021-08-19] MEDS: Morphine 4 MG/ML Syringe IV (20:53)
[2021-08-19] MEDS: Ondansetron 4 MG/2 ML Vial IV (20:53)
[2021-08-19] MEDS: 0.9% Normal Saline 1,000 ML 150 ML IV (20:53)
--- NOTE | 2021-08-19 20:55 | NURSING ---
pt drove self to ED spoke with pt about needing a ride home if Morphine is given. pt stated understanding and ability to get a ride later if needed. pain 7/10 reported. zofran given.
[2021-08-19 20:58] LABS: Absolute Lymphocyte Count 4.81 X10^3/uL (0.83-4.51); Absolute Neutrophil Count 6.3 X10^3/uL (2.0-7.7); Basophil# 0.07 X10^3/uL; Basophil% 0.6 % (0-1); Eosinophil# 0.25 X10^3/uL; Hematocrit 43.7 % (37-47); Hemoglobin 14.1 g/dL (12.0-15.0); Lymphocyte # 4.81 X10^3/ul (0.83-4.51); Lymphocyte % 38.1 % (19-41); Mean Corp Hgb Conc 32.3 g/dL (32-36); Mean Corpuscular Hgb 29.9 pg (27.0-32.0); Mean Corpuscular Volume 92.6 fL (81-99); Mean Platelet Vol. 9.3 fl (6.2-12.0); Monocyte# 1.13 X10^3/uL; NRBC Flagged by Analyzer 0 % (0-5); Neutrophil # 6.32 X10^3/uL (2.7-7.7); Platelet Count 453 K/mm3 (150-450); RBC Distribution Width SD 44.1 fl (35.1-43.9); Red Blood Count 4.72 M/mm3 (4.2-5.4); White Blood Count 12.6 K/mm3 (4.4-11.0)
[2021-08-19 21:13] LABS: Color, Urine Yellow (Yellow); Glucose, Dipstick Normal (Normal); Ketone-Dipstick Negative (Negative); Leukocyte Esterase-Dipstick Negative /ul (Negative); Nitrite-Dipstick Negative (Negative); Occult Blood-Urine Negative /ul (Negative); Protein-Dipstick Negative (Negative); Urine Bilirubin Dipstick Negative (Negative); Urine Clarity Clear (Clear); Urine Urobilinogen Normal (Normal)
[2021-08-19 21:15] LABS: AST(SGOT) 18 U/L (15-37); Alanine Aminotransfer ALT/SGPT 23 U/L (13-56); Albumin, Serum 3.8 g/dL (3.2-5.0); Alkaline Phosphatase 89 U/L (45-117); Anion Gap 5 (5-15); BUN 13 mg/dL (7-18); BUN/Creat Ratio 13.9 RATIO (10-20); Bilirubin, Direct 0.07 mg/dL (0.00-0.30); Calcium,Total 9.8 mg/dL (8.5-10.1); Chloride 106 mmol/L (98-107); Creatinine, Serum 0.93 mg/dL (0.55-1.02); EST Glomerular Filtration Rate 67 mL/min (>60); Est Glom Filt Rate - Afr Amer 81 mL/min (>60); Globulin 4.3 g/dL (2.2-4.2); Glucose 97 mg/dL (74-106); Potassium 3.8 mmol/L (3.5-5.1); Protein, Total 8.1 g/dL (6.4-8.2); Sodium Level 140 mmol/L (136-145)
[2021-08-19 21:22] LABS: Squamous Epithelial Cells - UA 0-5 SEEN /hpf (5-10)
[2021-08-19 22:11] VITALS: RESP 18; O2SAT 97
--- NOTE | 2021-08-19 22:28 | CT_ITS ---
STUDY: CT ABDOMEN AND PELVIS WITH CONTRAST REASON FOR EXAM: Female, 51 years old. abd pain -- IV PO Contrast RADIATION DOSAGE (If Supplied By Facility): CTDIvol = ( 15.32 ) mGy, DLP = ( 1080.41 ) mGycm TECHNIQUE: Transaxial images were obtained from the dome of the diaphragm to the symphysis pubis with oral contrast. Oral and amp; IV Gastrografin and amp; 100mL Isovue-370 was administered. Sagittal and coronal images were reconstructed. Individualized dose optimization techniques were used for this CT. COMPARISON: CT abdomen pelvis 06/11/2018. FINDINGS: LOWER CHEST: Dependent atelectasis in the lung bases. LIVER: Fatty infiltration. Tiny low-attenuation structure in the right lobe too small to characterize. GALLBLADDER/BILE DUCTS: Gallbladder surgically absent. PANCREAS: Unremarkable. SPLEEN: Unremarkable. ADRENAL GLANDS: Unremarkable. KIDNEYS / URETERS: Unremarkable. BOWEL / MESENTERY: Diverticula throughout the colon. No localized inflammatory changes. No bowel obstruction. APPENDIX: Not visualized. PERITONEUM: No free air. No free fluid. VESSELS: Abdominal aorta is normal caliber. RETROPERITONEUM: Unremarkable. REPRODUCTIVE ORGANS: Unremarkable. BLADDER: Unremarkable. ABDOMINAL WALL: Small supraumbilical hernia contains only fat, no bowel, with mild stranding and small amount of fluid in the hernia sac and just deep to the hernia in the abdomen. BONES: No acute abnormality. OTHER: None. CT/Abdomen/Pelvis WITH Contrast IMPRESSION: Small fat-containing supraumbilical hernia with findings that can be seen with incarceration. No bowel obstruction. Colonic diverticulosis without evidence of acute diverticulitis. Hepatic steatosis. Electronically Signed: Myah Sanders MD at 22:57 EDT ,
[2021-08-19 23:31] VITALS: BP 111/67; PULSE 67; RESP 18
== END 2021-08-19 23:33 | disposition home or self-care (01) ==
PROVIDERS: Emergency Provider Emergency Medicine; PCP Nurse Practitioner; Visit Provider Emergency Medicine
DX: K42.9 Umbilical hernia without obstruction or gangrene (principal); F17.200 Nicotine dependence, unspecified, uncomplicated
CPT/HCPCS: 74177; 80048; 80076; 81001; 85025; 96361; 96374; 96375; 99283; J7030; Q9967; A4216; J2405

== ENCOUNTER → 2022-01-09 | Outpatient (CLI) | payer BC, SELFPAY ==
--- NOTE | 2022-01-09 15:16 | BI_ITS ---
MAMMOGRAPHY - BILATERAL SCREENING REASON FOR EXAM: Female, 51 years old. Routine annual screening examination. PERTINENT HISTORY: Grandmother with breast cancer. TECHNIQUE: Digital bilateral breast gregorio (3D mammographic acquisition) in the CC and MLO projections. 2-D mediolateral oblique (MLO) and craniocaudad (CC) views of both breasts were obtained. CAD: Full Field Digital Mammography with Computer Added Detection was performed. COMPARISON: 01/14/2020, 11/08/2017. FINDINGS: Breast Composition: There are scattered areas of fibroglandular density. There are no dominant masses or suspicious calcifications. Stable bilateral small benign-appearing axillary and intramammary lymph nodes. No other significant abnormalities are identified. There has been no significant change since the prior study. BI/SCRN MAMM (CAD)W/GREGORIO BILAT IMPRESSION: Stable bilateral screening mammogram. Yearly follow-up mammogram recommended. (A) ASSESSMENT CATEGORY: BIRADS Category 2: Benign. A letter regarding these results will be sent to the patient by the facility within 30 days. Approximately 10% of breast cancers are not detected by mammography. A normal mammogram should not delay biopsy of a clinically suspicious abnormality. Electronically Signed: Terence Avalos, at 9:58 EST ,
== END | disposition home or self-care (01) ==
LOC: OPBI 15:14
PROVIDERS: PCP Nurse Practitioner Family; Visit Provider Nurse Practitioner Family
DX: Z12.31 Encounter for screening mammogram for malignant neoplasm of breast (principal); Z80.3 Family history of malignant neoplasm of breast
CPT/HCPCS: 77063; 77067